=== PATIENT | female | born 1995 ===

== ENCOUNTER 2021-08-18 13:34 | Emergency (ER) | payer OTHER ==
[~2021-08-18] VITALS: Ht 177.8 cm; Wt 88.5 kg
[2021-08-18] MEDS ORDERED: DIALYVITE 800-1 EACH PO (14:10)
== END 2021-08-18 17:26 | disposition home or self-care (01) ==
LOC: ER 13:34
DX: O26.892 Other specified pregnancy related conditions, second trimester (principal); Z3A.26 26 weeks gestation of pregnancy; R10.84 Generalized abdominal pain; K29.70 Gastritis, unspecified, without bleeding

== ENCOUNTER 2021-11-09 12:37 | Inpatient (IN) | payer OTHER ==
[~2021-11-09] VITALS: Ht 177.8 cm; Wt 100.2 kg
[~2021-11-09 12:37] MED LIST: DIALYVITE 800-1 EACH PO
== END 2021-11-13 19:00 | disposition home or self-care (01) | DRG 832 ==
LOC: OBS/DEL 12:37 → LDR 11-10 01:49
PROVIDERS: ADMIT Obstetrics & Gynecology; ATTEND Obstetrics & Gynecology
PROC: BY4FZZZ Ultrasonography of Third Trimester, Single Fetus (ICD-10-PCS; principal; 2021-11-10)
PROC: BT43ZZZ Ultrasonography of Bilateral Kidneys (ICD-10-PCS; 2021-11-10)
PROC: 4A1HXCZ Monitoring of Products of Conception, Cardiac Rate, External Approach (ICD-10-PCS; 2021-11-10)
DX: O36.8130 Decreased fetal movements, third trimester, not applicable or unspecified (principal); O99.113 Other diseases of the blood and blood-forming organs and certain disorders involving the immune mechanism complicating pregnancy, third trimester; D69.6 Thrombocytopenia, unspecified; Z3A.38 38 weeks gestation of pregnancy; Z20.822 Contact with and (suspected) exposure to COVID-19

== ENCOUNTER 2021-11-19 19:17 | Inpatient (IN) | payer OTHER ==
[~2021-11-19] VITALS: Ht 180.3 cm; Wt 3.2 kg
== END 2021-11-22 15:13 | disposition home or self-care (01) | DRG 788 ==
LOC: LDR 19:17 → OB/GYN 11-20 21:59
PROVIDERS: ADMIT Obstetrics & Gynecology; ATTEND Obstetrics & Gynecology
PROC: 3E0P7VZ Introduction of Hormone into Female Reproductive, Via Natural or Artificial Opening (ICD-10-PCS; 2021-11-19)
PROC: 4A1HXCZ Monitoring of Products of Conception, Cardiac Rate, External Approach (ICD-10-PCS; 2021-11-19)
PROC: 3E033VJ Introduction of Other Hormone into Peripheral Vein, Percutaneous Approach (ICD-10-PCS; 2021-11-20)
PROC: 10D00Z1 Extraction of Products of Conception, Low, Open Approach (ICD-10-PCS; principal; 2021-11-20 20:30)
DX: O82 Encounter for cesarean delivery without indication (principal); O61.0 Failed medical induction of labor; O62.0 Primary inadequate contractions; Z3A.39 39 weeks gestation of pregnancy; Z37.0 Single live birth; Z20.822 Contact with and (suspected) exposure to COVID-19